=== PATIENT | female | born 1995 ===

== ENCOUNTER 2017-08-27 14:55 | Emergency (ER) | payer SELFPAY ==
--- NOTE | 2017-08-27 16:41 | ED PDOC ---
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 states for the past 2 days she's had suprapubic pain. States she is currently . LMP: 07/11/2017. Pt. states she is concerned about having an ectopic . States in 05/2017 she was dx with an ectopic which did not require surgery. Denies vaginal bleeding, weakness, dysuria, hematuria, N/V/D, fever, back pain. [id number] Past Medical History Vital Signs: Last Vital Signs Temp 98.8 F 08/27/17 15:01 Pulse 89 08/27/17 15:01 Resp 16 08/27/17 15:01 BP 118/72 08/27/17 15:01 Pulse Ox 100 08/27/17 15:01 - Family History Family History: States: No Known Family Hx - Allergies Allergies/Adverse Reactions: Allergies Allergy/AdvReac Type Severity Reaction Status Date / Time No Known Allergies Allergy Verified 08/27/17 15:01 Review of Systems ROS Statement: Except As Marked, All Systems Reviewed And Found Negative Genitourinary Female: Positive for: Pelvic Pain Physical Exam - Physical Exam Appears: Positive for: Well, Non-toxic, No Acute Distress Skin: Positive for: Normal Color, Warm. Negative for: Rash Eye Exam: Positive for: Normal appearance Gastrointestinal/Abdominal: Positive for: Normal Exam, Soft. Negative for: Tenderness Back: Positive for: Normal Inspection. Negative for: L CVA Tenderness, R CVA Tenderness Neurologic/Psych: Positive for: Alert, Oriented. Negative for: Aphasia, Facial Droop - Laboratory Results Result Diagrams: 08/27/17 17:00 08/27/17 17:00 Urine POC: Positive - ECG O2 Sat by Pulse Oximetry: 100 - Progress ED Course And Treament: Labs, TVUS ordered. 1817 Case, labs, and US results d/w Dr. De Jesus who recommends repeat BHCG and US in 48 hours. TVUS: Possible very early intrauterine gestational sac. No pole or cardiac activity detected. Out of range for age determination. Cannot rule out ectopic . Adjacent irregular complex fluid collection. Possible subchorionic hemorrhage. 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 informed of results and advised to return to ED in 48 hours for repeat BHCG and US but is to return to ED immediately if pain worsens or bleeding develops. Pt. verbalized understanding of necessary f/u and plan. Disposition - Clinical Impression Clinical Impression: Pelvic pain during , Threatened miscarriage - Patient ED Disposition Is Patient to be Admitted: No - Disposition Referrals: [facility] [Outside] Disposition: Routine/Home Disposition Time: 19:18 Condition: STABLE Additional Instructions: RETURN TO ED IN 48 HOURS FOR REPEAT BHCG AND US Instructions: Threatened Miscarriage Forms: [employer] (Bel[place]ian) Print Language: TURKMEN
[2017-08-27 17:30] LABS: BASO % 0.4 % (0.0-2.0); EOS # 0.1 K/uL (0.0-0.7); EOS % 1.1 % (0.0-4.0); HEMOGLOBIN 12.5 g/dL (12.0-16.0); LYMPH # 2.4 K/uL (1.0-4.3); MEAN CELL VOLUME 86.2 fl (81.0-99.0); MEAN CORPUSCULAR HEMOGLOBIN 29.6 pg (27.0-31.0); MEAN CORPUSCULAR HGB CONC 34.3 g/dL (33.0-37.0); MEAN PLATELET VOLUME 9.8 fl (7.2-11.7); MONO # 0.7 K/uL (0.0-0.8); MONO % 8.5 % (0.0-10.0); NEUT # 4.8 K/uL (1.8-7.0); RBC 4.22 Mil/uL (3.80-5.20); RED CELL DISTRIBUTION WIDTH 13.7 % (11.5-14.5)
[2017-08-27 17:32] LABS: SQUAMOUS EPITHIAL 1 /hpf (0-5); URINE BILIRUBIN NEGATIVE (NEGATIVE); URINE BLOOD NEGATIVE (NEGATIVE); URINE CLARITY CLEAR (Clear); URINE COLOR STRAW (YELLOW); URINE GLUCOSE (UA) NEG (Normal); URINE LEUKOCYTE ESTERASE NEG Leu/uL (Negative); URINE PROTEIN NEGATIVE (NEGATIVE); URINE UROBILINOGEN 0.2-1.0 mg/dL (0.2-1.0)
[2017-08-27 17:42] LABS: BLOOD UREA NITROGEN 10 mg/dl (7-17); CALCIUM 9.1 mg/dL (8.4-10.2); GFR AFRICAN-AMERICAN > 60; GFR NON-AFRICAN AMERICAN > 60
--- NOTE | 2017-08-27 18:00 | US ---
PROCEDURE: OB Pelvic Ultrasound HISTORY: pelvic pain COMPARISON: None available. FINDINGS: UTERUS: Small fluid collection, possible early gestational sac. This measures 5 mm, out of range for determination of age. No pole visualized. No detectable cardiac activity. There is an irregularly-shaped complex fluid collection adjacent to this, measuring 0.4 x 1.5 x 2.6 cm. Possible subchorionic hemorrhage. Uterus measures 7.9 x 6.7 x 5.1 cm. No mass CERVIX: Long and closed. No cervical abnormality seen. RIGHT OVARY: Measures 3.5 x 2.2 x 2.4 cm. No mass. Normal flow. Physiologic cyst, 1.1 x 1.3 x 1.5 cm. LEFT OVARY: Measures 3.0 x 1.3 x 1.7 cm. No mass. Normal flow. FREE FLUID: None. OTHER FINDINGS: None. IMPRESSION: Possible very early intrauterine gestational sac. No pole or cardiac activity detected. Out of range for age determination. Cannot rule out ectopic . Adjacent irregular complex fluid collection. Possible subchorionic hemorrhage.
[2017-08-27 19:44] VITALS: BP 130/78; PULSE 84; RESP 18; TEMP 98.4; O2SAT 99
== END 2017-08-27 19:43 | disposition home or self-care (01) ==
LOC: H.ER 14:55
DX: O20.0 Threatened abortion (principal)

== ENCOUNTER 2017-08-29 13:42 | Emergency (ER) | payer SELFPAY ==
[2017-08-29 13:51] VITALS: BP 115/72; PULSE 94; RESP 18; TEMP 98.6
[2017-08-29 14:06] VITALS: O2SAT 99
--- NOTE | 2017-08-29 14:13 | ED PDOC ---
HPI: General Adult Time Seen by Provider: 08/29/17 14:00 Chief Complaint (Nursing): Abnormal Labs History Per: Patient History/Exam Limitations: no limitations Additional History Per: Prior Records Additional Complaint(s): 22-year-old female (G3-P1) presents to ED for repeat beta-hCG test and ultrasound. Pt is approximately 5 week gestation. Pt was seen here 2 days ago for abdominal pain in . Pt evaluated to r/o ectopic. Currently no pain or vaginal bleeding. PMD: Provider TBD Past Medical History Reviewed: Historical Data, Nursing Documentation, Vital Signs Vital Signs: Last Vital Signs Temp 98.6 F 08/29/17 13:47 Pulse 94 H 08/29/17 13:47 Resp 18 08/29/17 13:47 BP 115/72 08/29/17 13:47 Pulse Ox 99 08/29/17 17:20 - Medical History PMH: No Chronic Diseases - Surgical History Surgical History: No Surg Hx - Family History Family History: States: Unknown Family Hx - Allergies Allergies/Adverse Reactions: Allergies Allergy/AdvReac Type Severity Reaction Status Date / Time No Known Allergies Allergy Verified 08/27/17 15:01 Review of Systems ROS Statement: Except As Marked, All Systems Reviewed And Found Negative Gastrointestinal: Negative for: Abdominal Pain Genitourinary Female: Negative for: Vaginal Bleeding Physical Exam - Reviewed Nursing Documentation Reviewed: Yes Vital Signs Reviewed: Yes - Physical Exam Gastrointestinal/Abdominal: Negative for: Tenderness Pelvic Exam: Positive for: Other (Pelvic Exam deferred) - Laboratory Results Result Diagrams: 08/29/17 14:23 08/29/17 14:23 - ECG O2 Sat by Pulse Oximetry: 99 (RA) Pulse Ox Interpretation: Normal - Progress ED Course And Treament: PELVIC US: Presumed early intrauterine gestation, well-formed gestational sac. Tiny gestational pole. No documented yolk sac. Medical Decision Making Medical Decision Making: Time: 14:03 Plan: - Beta-hCG, Quantitative - cmp - cbc (with differentials) - ob tranvaginal ultrasound Beta-hCG, Quantitative Reveals 6871.80 mIU/mL Time: 16:41 ob transvaginal ultrasound FINDINGS: UTERUS: Measures 4.6 x 5.5 x 0.8 cm. Normal in size and appearance. No fibroid or other mass lesion seen. ENDOMETRIUM: Gestational sac measurement 0.83 cm. Out of range for calculation of reliable gestational age. [place]-rump length 0.23 cm corresponds to gestational age 5 weeks 5 days. Corresponding BLAKE 04/26/2018 CERVIX: Closed cervix 4.9 cm RIGHT OVARY: Measures 2.3 x 2.8 x 3.9 cm. No solid mass. Normal flow. Simple cyst 1.7 x 1.8 cm LEFT OVARY: Measures 1.8 x 2.4 x 2.6 wong cm. No solid mass. Normal flow. FREE FLUID: No significant free fluid noted. OTHER FINDINGS: None. IMPRESSION: Presumed early intrauterine gestation, well-formed gestational sac. Tiny gestational pole. No documented yolk sac. Scribe Attestation: Documented by Mark Dolan, acting as a scribe for Henry Holly PA-C. Provider Scribe Attestation: All medical record entries made by the Scribe were at my direction and personally dictated by me. I have reviewed the chart and agree that the record accurately reflects my personal performance of the history, physical exam, medical decision making, and the department course for this patient. I have also personally directed, reviewed, and agree with the discharge instructions and disposition. Disposition - Clinical Impression Clinical Impression: Threatened miscarriage - Patient ED Disposition Is Patient to be Admitted: No - Disposition [facility] Disposition: Routine/Home Disposition Time: 17:24 Condition: FAIR Instructions: Threatened Miscarriage (DC) Print Language: SINHALA
[2017-08-29 14:30] LABS: BASO # 0.1 K/uL (0.0-0.2); BASO % 0.8 % (0.0-2.0); EOS # 0.1 K/uL (0.0-0.7); EOS % 1.6 % (0.0-4.0); HEMOGLOBIN 12.8 g/dL (12.0-16.0); LYMPH % 24.5 % (20.0-40.0); MEAN CELL VOLUME 86.4 fl (81.0-99.0); MEAN CORPUSCULAR HEMOGLOBIN 29.4 pg (27.0-31.0); MEAN PLATELET VOLUME 9.5 fl (7.2-11.7); MONO # 0.7 K/uL (0.0-0.8); NEUT # 5.2 K/uL (1.8-7.0); NEUT % 64.1 % (50.0-75.0); RBC 4.34 Mil/uL (3.80-5.20); RED CELL DISTRIBUTION WIDTH 13.3 % (11.5-14.5); WHITE BLOOD COUNT 8.1 K/uL (4.8-10.8)
[2017-08-29 14:44] LABS: ALB/GLOB RATIO 1.1 (1.0-2.1); ALBUMIN 4.1 g/dL (3.5-5.0); ALT/SGPT 50 U/L (9-52); AST/SGOT 32 U/L (14-36); BLOOD UREA NITROGEN 8 mg/dl (7-17); GFR AFRICAN-AMERICAN > 60; GFR NON-AFRICAN AMERICAN > 60
--- NOTE | 2017-08-29 16:43 | US ---
HISTORY: Abdominal pain and early . LMP 07/11/2017. Corresponding BLAKE 04/17/2018. COMPARISON: 08/27/2017 TECHNIQUE: Standard protocol for this study/examination. FINDINGS: UTERUS: Measures 4.6 x 5.5 x 0.8 cm. Normal in size and appearance. No fibroid or other mass lesion seen. ENDOMETRIUM: Gestational sac measurement 0.83 cm. Out of range for calculation of reliable gestational age. [place]-rump length 0.23 cm corresponds to gestational age 5 weeks 5 days. Corresponding BLAKE 04/26/2018 CERVIX: Closed cervix 4.9 cm RIGHT OVARY: Measures 2.3 x 2.8 x 3.9 cm. No solid mass. Normal flow. Simple cyst 1.7 x 1.8 cm LEFT OVARY: Measures 1.8 x 2.4 x 2.6 wong cm. No solid mass. Normal flow. FREE FLUID: No significant free fluid noted. OTHER FINDINGS: None. IMPRESSION: Presumed early intrauterine gestation, well-formed gestational sac. Tiny gestational pole. No documented yolk sac.
== END 2017-08-29 17:30 | disposition home or self-care (01) ==
LOC: H.ER 13:42
DX: O20.0 Threatened abortion (principal); Z3A.01 Less than 8 weeks gestation of pregnancy

== ENCOUNTER 2017-10-15 09:08 | Emergency (ER) | payer SELFPAY ==
[2017-10-15 09:18] VITALS: BMI 28.3
--- NOTE | 2017-10-15 10:15 | ED PDOC ---
HPI: Female Pain Time Seen by Provider: 10/15/17 09:25 Chief Complaint (Nursing): Female Genitourinary Chief Complaint (Provider): vaginal bleeding History Per: Patient History/Exam Limitations: no limitations Onset/Duration Of Symptoms: Hrs Current Symptoms Are (Timing): Still Present Quality Of Discomfort: "Pain" Associated Symptoms: Back Pain, Other (suprapubic pain ). denies: Fever, Chest Pain, Urinary Symptoms Additional Complaint(s): 22 year old female presents to the ED complaining of vaginal bleeding onset this morning. Also reports of suprapubic pain and back pain yesterday. She has small amounts of vaginal blood but denies blood clots. Patient is 12 weeks and had an ultrasound done earlier during . She is G3, P1, A1. Denies syncope, dysuria, fever, rectal bleeding or chest pain. PMD: [facility] ([place]) Past Medical History Reviewed: Historical Data, Nursing Documentation, Vital Signs Vital Signs: Last Vital Signs Temp 98.9 F 10/15/17 09:19 Pulse 75 10/15/17 09:19 Resp 18 10/15/17 09:19 BP 96/60 L 10/15/17 09:19 Pulse Ox 98 10/15/17 09:19 - Medical History PMH: No Chronic Diseases - Surgical History Surgical History: No Surg Hx - Family History Family History: States: Unknown Family Hx - Social History Current smoker - smoking cessation education provided: No Alcohol: None Drugs: Denies - Home Medications Home Medications: Ambulatory Orders Medication Instructions Recorded Misoprostol 800 mcg PO BID #8 tablet 10/15/17 - Allergies Allergies/Adverse Reactions: Allergies Allergy/AdvReac Type Severity Reaction Status Date / Time No Known Allergies Allergy Verified 08/27/17 15:01 Review of Systems ROS Statement: Except As Marked, All Systems Reviewed And Found Negative Constitutional: Negative for: Fever Cardiovascular: Negative for: Chest Pain Gastrointestinal: Positive for: Abdominal Pain (suprapubic pain ). Negative for : Nausea, Vomiting, Diarrhea Genitourinary Female: Positive for: Vaginal Bleeding. Negative for: Dysuria, Frequency Musculoskeletal: Positive for: Back Pain Neurological: Negative for: Other (syncope) Physical Exam - Reviewed Nursing Documentation Reviewed: Yes Vital Signs Reviewed: Yes - Physical Exam Appears: Positive for: Non-toxic, No Acute Distress Head Exam: Positive for: ATRAUMATIC, NORMAL INSPECTION, NORMOCEPHALIC Skin: Positive for: Normal Color, Warm, Dry Eye Exam: Positive for: Normal appearance, EOMI, PERRL ENT: Positive for: Normal ENT Inspection Neck: Positive for: Normal, Painless ROM, Supple. Negative for: Decreased ROM Cardiovascular/Chest: Positive for: Regular Rate, Rhythm. Negative for: Murmur Respiratory: Positive for: Normal Breath Sounds. Negative for: Decreased Breath Sounds, Wheezing, Respiratory Distress Gastrointestinal/Abdominal: Positive for: Normal Exam, Bowel Sounds, Soft. Negative for: Tenderness, Guarding, Rebound Back: Positive for: Normal Inspection. Negative for: L CVA Tenderness, R CVA Tenderness Extremity: Positive for: Normal ROM. Negative for: Tenderness, Pedal Edema, Deformity Neurologic/Psych: Positive for: Alert, Oriented (x3) - ECG O2 Sat by Pulse Oximetry: 98 (RA) Pulse Ox Interpretation: Normal Medical Decision Making Medical Decision Making: Time: 951 Initial Impression: vaginal bleeding 1st trimester Differential Diagnosis includes but is not limited to: frightened miscarriage Initial Plan: --Type and Screen -- Serum --OB , Limited [US] --Reevaluation Patient already had US and her IUP at 5 weeks. Time: 1515 PROCEDURE: First trimester ultrasound HISTORY: vaginal bleeding, suprapubic pain COMPARISON: 08/29/2017 TECHNIQUE: Transvaginal only. Real -time technique with 2D, duplex and color Doppler FINDINGS: LMP: 07/11/2017. Prior examinations from the current : 08/29/2017 TECHNIQUE: Real-time 2D imaging, duplex and color Doppler. FINDINGS: Cardiac activity: Absent. Measurements: [place] rump length: 2.21 cm Gestational age based on CRL 8 weeks 6 days Gestational age 9 weeks 3 days based on gestational sac measurement 4.05 cm Gestational age derived from LMP: 14 weeks 5 days BLAKE based on LMP: 05/19/2018. BLAKE based on biometry: 05/19/2018. Gestational concordance not documented Yolk sac not identified Uterus: Unremarkable. Cervix: No Cervical abnormalities: Negative examination for cervical dilatation or effacement. Closed cervix. Subchorionic hemorrhage: None UTERUS: 5.9 x 7.9 x 12 cm. ADNEXA: Right: 1.7 x 2.5 x 3.7 cm. Normal Doppler arterial waveform documented. Left: Not visible Fluid in the cul-de-sac: None IMPRESSION: Ultrasound findings of intrauterine demise. Gestational pole and gestational sac measurements are discordant with at derived from the LMP. 1530 Discussed the case and findings with Dr De Jesus who recommends misoprostol treatment outpatient and follow up with primary ObGYn. Scribe Attestation: Documented by Mariano Monterroso, acting as a scribe for Ml Lester MD Provider Scribe Attestation: All medical record entries made by the Scribe were at my direction and personally dictated by me. I have reviewed the chart and agree that the record accurately reflects my personal performance of the history, physical exam, medical decision making, and the department course for this patient. I have also personally directed, reviewed, and agree with the discharge instructions and disposition. Disposition - Clinical Impression Clinical Impression: demise - Patient ED Disposition Is Patient to be Admitted: No Doctor Will See Patient In The: Office Counseled Patient/Family Regarding: Studies Performed, Diagnosis, Need For Followup - Disposition Referrals: [facility] [Outside] Disposition: Routine/Home Disposition Time: 15:36 Condition: GOOD Additional Instructions: Take your medications as instructed. Follow up with your PCP in 2-3 days. ELROY CRONIN, thank you for letting us take care of you today. Your provider was Ml Lester MD and you were treated for 12 WEEKS,VAGINAL BLEEDING,BACK PAIN. The emergency medical care you received today was directed at your acute symptoms. If you were prescribed any medication, please fill it and take as directed. It may take several days for your symptoms to resolve. Return to the Emergency Department if your symptoms worsen, do not improve, or if you have any other problems. Please contact your doctor or call one of the physicians/clinics you have been referred to that are listed on the Patient Visit Information form that is included in your discharge packet. Bring any paperwork you were given at discharge with you along with any medications you are taking to your follow up visit. Our treatment cannot replace ongoing medical care by a primary care provider outside of the emergency department. Thank you for allowing the [facility] team to be part of your care today. If you had an X-Ray or CT scan: A Radiologist will review the ED reading if any change in treatment is needed we will contact you. If you had a blood, urine, or wound culture: It will take several days for the results, if any change in treatment is needed we will contact you. If you had an STI test: It will take 48 hours for the results. Please call after 1 week if you have not heard back. Prescriptions: Misoprostol 800 mcg PO BID #8 tablet Instructions: Miscarriage, Misoprostol Forms: [employer] (Vietnamese) Print Language: TUVALUAN
--- NOTE | 2017-10-15 15:18 | US ---
Date of service: 10/15/2017 PROCEDURE: First trimester ultrasound HISTORY: vaginal bleeding, suprapubic pain COMPARISON: 08/29/2017 TECHNIQUE: Transvaginal only. Real -time technique with 2D, duplex and color Doppler FINDINGS: LMP: 07/11/2017. Prior examinations from the current : 08/29/2017 TECHNIQUE: Real-time 2D imaging, duplex and color Doppler. FINDINGS: Cardiac activity: Absent. Measurements: [place] rump length: 2.21 cm Gestational age based on CRL 8 weeks 6 days Gestational age 9 weeks 3 days based on gestational sac measurement 4.05 cm Gestational age derived from LMP: 14 weeks 5 days BLAKE based on LMP: 05/19/2018. BLAKE based on biometry: 05/19/2018. Gestational concordance not documented Yolk sac not identified Uterus: Unremarkable. Cervix: No Cervical abnormalities: Negative examination for cervical dilatation or effacement. Closed cervix. Subchorionic hemorrhage: None UTERUS: 5.9 x 7.9 x 12 cm. ADNEXA: Right: 1.7 x 2.5 x 3.7 cm. Normal Doppler arterial waveform documented. Left: Not visible Fluid in the cul-de-sac: None IMPRESSION: Ultrasound findings of intrauterine demise. Gestational pole and gestational sac measurements are discordant with at derived from the LMP.
[2017-10-15 15:58] VITALS: BP 101/66; PULSE 78; RESP 16; TEMP 98.2; O2SAT 100
== END 2017-10-15 15:59 | disposition home or self-care (01) ==
LOC: H.ER 09:08
DX: O36.4XX1 Maternal care for intrauterine death, fetus 1 (principal); Z3A.01 Less than 8 weeks gestation of pregnancy

== ENCOUNTER 2017-10-20 08:35 | Emergency (ER) | payer SELFPAY ==
[2017-10-20 08:48] VITALS: BMI 28.0
--- NOTE | 2017-10-20 09:30 | ED PDOC ---
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 ([email or web address] #[id number]) Abnormal Vaginal Bleeding: No Past Medical History Vital Signs: Last Vital Signs Temp 98.2 F 10/20/17 08:46 Pulse 65 10/20/17 08:46 Resp BP 92/52 L 10/20/17 08:46 Pulse Ox 99 10/20/17 08:46 - Family History Family History: States: Unknown Family Hx - Home Medications Home Medications: Ambulatory Orders Medication Instructions Recorded Misoprostol 800 mcg PO BID #8 tablet 10/15/17 Ibuprofen [Motrin Tab] 600 mg PO Q6 PRN #15 tab 10/20/17 miSOPROStol [Cytotec] 800 mcg VAG Q3 #8 tab 10/20/17 traMADol [Ultram] 50 mg PO TID PRN #12 tab 10/20/17 - Allergies Allergies/Adverse Reactions: Allergies Allergy/AdvReac Type Severity Reaction Status Date / Time No Known Allergies Allergy Verified 10/20/17 08:55 - Laboratory Results Result Diagrams: 10/20/17 09:40 10/20/17 09:40 - ECG O2 Sat by Pulse Oximetry: 99 Medical Decision Making Medical Decision Making: clinical phamarcist naye review medication arley arora apparently dispensed wrong and was taking med BID which likely not enough to produce desired effect labs today reviewed, HCG trending down, US confirms demise. Dose intravaginal cytotec thus given today, monitored approx 1hr after with some back pain and cramping initiating. Explained to expect more, but she appears comfortable and wishes to go home. explained results via [email or web address] [id number], additional doses cytotec tonight, pain medicine prn, indications for return to ER discussed Disposition - Clinical Impression Clinical Impression: Incomplete - Disposition [facility] [[facility]] Condition: STABLE Additional Instructions: Take medication as directed. Use pain medicine as needed. Return to ER for any worse or new symptoms, severe pain, bleeding >3pads/ hour or any concern. Prescriptions: Ibuprofen [Motrin Tab] 600 mg PO Q6 PRN #15 tab PRN Reason: Pain, Moderate (4-7) miSOPROStol [Cytotec] 800 mcg VAG Q3 #8 tab traMADol [Ultram] 50 mg PO TID PRN #12 tab PRN Reason: Pain, Moderate (4-7) Instructions: Dealing With Miscarriage, Miscarriage (DC) Forms: [employer] (Italian) Print Language: KOREAN
[2017-10-20 09:49] LABS: BASO % 0.8 % (0.0-2.0); EOS # 0.1 K/uL (0.0-0.7); EOS % 1.7 % (0.0-4.0); HEMOGLOBIN 12.5 g/dL (12.0-16.0); LYMPH # 1.8 K/uL (1.0-4.3); LYMPH % 33.3 % (20.0-40.0); MEAN CELL VOLUME 85.6 fl (81.0-99.0); MEAN CORPUSCULAR HEMOGLOBIN 29.6 pg (27.0-31.0); MEAN CORPUSCULAR HGB CONC 34.6 g/dL (33.0-37.0); MEAN PLATELET VOLUME 9.2 fl (7.2-11.7); MONO # 0.5 K/uL (0.0-0.8); MONO % 9.4 % (0.0-10.0); NEUT % 54.8 % (50.0-75.0); NRBC % 0.1 % (0.0-0.0); RBC 4.23 Mil/uL (3.80-5.20); RED CELL DISTRIBUTION WIDTH 13.2 % (11.5-14.5); WHITE BLOOD COUNT 5.5 K/uL (4.8-10.8)
[2017-10-20 10:05] LABS: ALB/GLOB RATIO 1.2 (1.0-2.1); ALBUMIN 4.1 g/dL (3.5-5.0); ALT/SGPT 35 U/L (9-52); AST/SGOT 45 U/L (14-36); BLOOD UREA NITROGEN 6 mg/dl (7-17); CALCIUM 8.8 mg/dL (8.4-10.2); GFR AFRICAN-AMERICAN > 60; GFR NON-AFRICAN AMERICAN > 60
--- NOTE | 2017-10-20 12:42 | US ---
Date of service: 10/20/2017 PROCEDURE: Limited ultrasound HISTORY: demise s/p misoprostol but no bleeding COMPARISON: 10/15/2017. TECHNIQUE: Standard protocol for this study/examination. FINDINGS: Re- demonstration of absent cardiac activity. Yolk sac identified. Right ovary 1.9 x 3.1 cm. Normal Doppler arterial waveform. Left ovary: 1.3 x 1 x 2.3 cm. Normal Doppler arterial waveform identified. IMPRESSION: Intrauterine demise. This represents seconds 1st trimester ultrasound without demonstrable cardiac activity.
[2017-10-20 16:26] VITALS: BP 129/70; PULSE 66; RESP 18; TEMP 98.5
[2017-10-20 16:49] VITALS: O2SAT 99
== END 2017-10-20 16:54 | disposition home or self-care (01) ==
LOC: H.ER 08:35
DX: O03.4 Incomplete spontaneous abortion without complication (principal)

== ENCOUNTER 2017-10-29 17:16 | Emergency (ER) | payer SELFPAY ==
[2017-10-29 17:16] VITALS: BMI 28.0
--- NOTE | 2017-10-29 18:06 | ED PDOC ---
HPI: Female Pain Time Seen by Provider: 10/29/17 17:58 Chief Complaint (Nursing): Female Genitourinary History Per: Patient Onset/Duration Of Symptoms: Unknown Current Symptoms Are (Timing): Still Present Severity: Mild Quality Of Discomfort: Cramping Additional Complaint(s): Vaginal spotting, referred bt [facility] for vaginal spotting assoc with retained products of conception Abnormal Vaginal Bleeding: Yes Past Medical History Vital Signs: Last Vital Signs Temp 98.1 F 10/29/17 17:29 Pulse 78 10/29/17 17:29 Resp 16 10/29/17 17:29 BP 102/65 10/29/17 17:29 Pulse Ox 100 10/29/17 17:29 - Medical History PMH: No Chronic Diseases - Family History Family History: States: Unknown Family Hx - Home Medications Home Medications: Ambulatory Orders Medication Instructions Recorded Misoprostol 800 mcg PO BID #8 tablet 10/15/17 Ibuprofen [Motrin Tab] 600 mg PO Q6 PRN #15 tab 10/20/17 miSOPROStol [Cytotec] 800 mcg VAG Q3 #8 tab 10/20/17 traMADol [Ultram] 50 mg PO TID PRN #12 tab 10/20/17 - Allergies Allergies/Adverse Reactions: Allergies Allergy/AdvReac Type Severity Reaction Status Date / Time No Known Allergies Allergy Verified 10/29/17 17:28 Review of Systems Gastrointestinal: Positive for: Abdominal Pain Genitourinary Female: Positive for: Vaginal Bleeding Physical Exam - Physical Exam Appears: Positive for: Non-toxic, No Acute Distress Skin: Positive for: Normal Color, Warm, DRY Gastrointestinal/Abdominal: Positive for: Bowel Sounds, Soft. Negative for: Tenderness Pelvic Exam: Positive for: External Exam Normal, Blood, Other (Cervix closed). Negative for: Tender Adnexa - Laboratory Results Result Diagrams: 10/29/17 18:59 - ECG O2 Sat by Pulse Oximetry: 100 Disposition - Clinical Impression Clinical Impression: Incomplete - Patient ED Disposition Is Patient to be Admitted: Transfer of Care - Disposition [facility] [[facility]] Disposition: Transfer of Care Disposition Time: 17:00 Condition: STABLE Instructions: Miscarriage Forms: [employer] (Mauritanian) Print Language: BULGARIAN Patient Signed Over To: José Miguel Lombardi
--- NOTE | 2017-10-29 18:59 | US ---
Date of service: 10/29/2017 HISTORY: retained products of conception COMPARISON: Comparison is made to the previous study dated 10/20/2017 TECHNIQUE: Endovaginal ultrasound examination of the pelvis was obtained. FINDINGS: UTERUS: Measures 7.8 x 4.9 x 5.2 cm. Normal in size and appearance. No fibroid or other mass lesion seen. ENDOMETRIUM: There is a complex heterogeneous fluid collection in the endometrial cavity measures 1.1 x 0.9 x 0.2 centimeter. No evidence of discrete gestational sac or pole. Findings may represent retained product of conception. CERVIX: No cervical abnormality identified. The cervix measures 4.3 centimeter. RIGHT OVARY: Measures 3.6 x 2.2 x 2.5 cm. No solid mass. Normal flow. Prominent follicle measures 2 centimeter. LEFT OVARY: Measures 2.5 x 1.5 x 1.3 cm. No solid mass. Normal flow. FREE FLUID: No significant free fluid noted. OTHER FINDINGS: None. IMPRESSION: Previously noted pole in the previous exam is not seen in the current study. Heterogeneous echogenicity and complex fluid in the endometrial cavity noted may represent in progress versus retained product of conception. No evidence of acute pathology in the ovaries.
[2017-10-29 19:09] LABS: BASO % 0.5 % (0.0-2.0); EOS # 0.1 K/uL (0.0-0.7); EOS % 1.3 % (0.0-4.0); HEMOGLOBIN 10.2 g/dL (12.0-16.0); LYMPH # 2.1 K/uL (1.0-4.3); LYMPH % 25.4 % (20.0-40.0); MEAN CELL VOLUME 86.9 fl (81.0-99.0); MEAN CORPUSCULAR HGB CONC 34.5 g/dL (33.0-37.0); MEAN PLATELET VOLUME 9.6 fl (7.2-11.7); MONO # 0.5 K/uL (0.0-0.8); MONO % 6.6 % (0.0-10.0); NEUT # 5.4 K/uL (1.8-7.0); NEUT % 66.2 % (50.0-75.0); RBC 3.41 Mil/uL (3.80-5.20); RED CELL DISTRIBUTION WIDTH 13.5 % (11.5-14.5); WHITE BLOOD COUNT 8.2 K/uL (4.8-10.8)
--- NOTE | 2017-10-29 19:16 | ED PDOC ---
- Laboratory Results Result Diagrams: 10/29/17 18:59 - ECG O2 Sat by Pulse Oximetry: 100 Medical Decision Making Medical Decision Making: Time: 19:00 Patient endorsed to provider by Dr. Stephenson pending blood work. Time: 22:00 DR. Crowley states patient can be discharged if bleeding is minimal and patient is stable. Patient confirms that bleeding is minimal today. Vitals stable Time: 23:00 Spoke with OB Engineering Technology Instructor who will confirm appointment with patient in AM. Patient has appointment scheduled for Friday. Explained return precautions. Used interepreter withpatient using [employer] #[id number] Patient well appearing with stable vitals upon discharge. Disposition - Clinical Impression Clinical Impression: Incomplete - POA Present On Arrival: None - Disposition [facility] Disposition: Routine/Home Disposition Time: 23:06 Condition: STABLE Instructions: Miscarriage Forms: [employer] (Mexican) Print Language: POLISH
[2017-10-29 23:07] VITALS: BP 117/64; PULSE 85; RESP 16; TEMP 98.6
[2017-10-31 07:05] VITALS: O2SAT 100
== END 2017-10-29 23:07 | disposition home or self-care (01) ==
LOC: H.ER 17:16
DX: O03.4 Incomplete spontaneous abortion without complication (principal)

== ENCOUNTER 2017-10-31 10:12 | Emergency (ER) | payer SELFPAY ==
[2017-10-31 10:12] VITALS: BMI 28.0
--- NOTE | 2017-10-31 11:23 | ED PDOC ---
HPI: Female Pain Time Seen by Provider: 10/31/17 11:00 Chief Complaint (Provider): fever, vaginal bleeding, mild pelvic pain History Per: Patient History/Exam Limitations: no limitations Onset/Duration Of Symptoms: Days (x1) Current Symptoms Are (Timing): Still Present Associated Symptoms: Fever, Nausea. denies: Vomiting, Diarrhea, Back Pain, Chest Pain, Urinary Symptoms Additional Complaint(s): Maria Elena Russo is a 22 year old female, with no significant past medical history, who was sent to the emergency department by Dr. Posada from [facility] for vaginal bleeding and mild pelvic pain associated with fever and mild frontal headache onset since yesterday afternoon. Patient was seen last week on 10/20 after she had a miscarriage and was sent home with Misoprostol and sent to follow up with clinic. She was sent to ED from clinic again on 10/29 for vaginal bleeding and still had product of conception inside and was told to come back if developed fever. Patient states she has not been compliant with Misoprostol and reports headache relief with Tylenol. She also reports nausea but denies any neck pain, cough, congestion, runny nose, shortness of breath, chest pain, dysuria, flank tenderness, vomit, diarrhea, back pain or other medical complaints. Headache is not the worst in her life. Gradual onset. No numbness, tingles. PMD: None provided OB: Dr. Posada Past Medical History Reviewed: Historical Data, Nursing Documentation, Vital Signs Vital Signs: Last Vital Signs Temp 99.6 F 10/31/17 10:24 Pulse 114 H 10/31/17 10:24 Resp 17 10/31/17 10:24 BP 99/62 L 10/31/17 10:24 Pulse Ox 98 10/31/17 10:24 - Medical History PMH: No Chronic Diseases Denies: Chronic Kidney Disease - Surgical History Surgical History: No Surg Hx - Family History Family History: States: Unknown Family Hx - Home Medications Home Medications: Ambulatory Orders Medication Instructions Recorded Misoprostol 800 mcg PO BID #8 tablet 10/15/17 Ibuprofen [Motrin Tab] 600 mg PO Q6 PRN #15 tab 10/20/17 miSOPROStol [Cytotec] 800 mcg VAG Q3 #8 tab 10/20/17 traMADol [Ultram] 50 mg PO TID PRN #12 tab 10/20/17 miSOPROStol [Cytotec] 200 mcg VAG ONCE #8 tab 10/31/17 - Allergies Allergies/Adverse Reactions: Allergies Allergy/AdvReac Type Severity Reaction Status Date / Time No Known Allergies Allergy Verified 10/29/17 17:28 Review of Systems ROS Statement: Except As Marked, All Systems Reviewed And Found Negative Constitutional: Positive for: Fever ENT: Negative for: Nose Congestion Cardiovascular: Negative for: Chest Pain Respiratory: Negative for: Cough, Shortness of Breath Gastrointestinal: Positive for: Nausea. Negative for: Vomiting, Diarrhea, Other (flank pain) Genitourinary Female: Positive for: Vaginal Bleeding, Pelvic Pain (mild). Negative for: Dysuria Physical Exam - Reviewed Nursing Documentation Reviewed: Yes Vital Signs Reviewed: Yes - Physical Exam Appears: Positive for: No Acute Distress Head Exam: Positive for: ATRAUMATIC, NORMAL INSPECTION, NORMOCEPHALIC Skin: Positive for: Normal Color, Warm, Dry Eye Exam: Positive for: Normal appearance, EOMI, PERRL ENT: Positive for: Normal ENT Inspection Neck: Positive for: Normal, Painless ROM (no tenderness), Supple Cardiovascular/Chest: Positive for: Regular Rate, Rhythm. Negative for: Edema, Murmur Respiratory: Positive for: Normal Breath Sounds. Negative for: Respiratory Distress Gastrointestinal/Abdominal: Positive for: Tenderness (mild tenderness across lower abdomen) Back: Positive for: Normal Inspection. Negative for: L CVA Tenderness, R CVA Tenderness Extremity: Positive for: Normal ROM (upper and lower extremities). Negative for : Tenderness, Deformity, Swelling Neurologic/Psych: Positive for: Alert, plant associate II-XII (intact), Oriented, Gait ( steady). Negative for: Motor/Sensory Deficits - Laboratory Results Result Diagrams: 10/31/17 11:25 10/31/17 11:25 Interpretation Of Abn Labs: urine wbc - ECG O2 Sat by Pulse Oximetry: 98 (RA) Pulse Ox Interpretation: Normal - CT Scan/US US Other Rad Studies (CT/US): Read By Radiologist Other Rad Interpretation: endometrium with clot - Progress ED Course And Treament: 1351: Spoke with Dr. Posada who knows pt. well and sent to the ER for workup. Made aware of all findings. Wants pt. to do misoprostol again. Wants pt. to get rx for 800mcg transvaginal. If no bleeding in 24 hrs, pt. to repeat. [facility] 1015am, [facility] Pt. aware and understands plan. AAOx3. Medical Decision Making Medical Decision Making: Time: 11:00 Initial Impression: Pelvic pain, miscarriage Initial Plan: --EKG --Beta-HCG, Quantitative --Magnesium --Phosphorus --Urine dipstick --Urine --CBC w/ differential --PTT --PT --Tylenol 325 mg tab 650 mg PO --Sodium Chloride 1,000 ml IV 1,000 mls/hr --Blood culture --Urine culture --Influenza A B --Urinalysis --OB Transvaginal [US] --Reevaluation 13:25 Transvaginal US FINDINGS: UTERUS: Measures 9.3 x 7.8 x 5.0 cm. No uterine mass. ENDOMETRIUM: Measures 30 mm in diameter. There is heterogeneous material seen within the endometrial cavity, some echogenic and some fluid spaces. The echogenic material is avascular. There is no vascular soft tissue seen within the endometrial cavity. The endometrial lining around this heterogeneous tissue is hypervascular, consistent with recent delivery. There is no definite evidence of retained products of conception. It is most likely that the endometrial contents consistent of the appearance is grossly unchanged when compared to examination of 10/29/2017. Blood clot. CERVIX: No cervical abnormality identified. RIGHT OVARY: Measures 3.9 x 3.1 x 2.3 cm. Probable hemorrhagic cyst in the right ovary, 2.1 cm in greatest dimension. Followup advised with transvaginal pelvic ultrasound. This is seen as containing heterogeneous low-level echoes. Normal flow. LEFT OVARY: Measures 2.9 x 2.7 x 2.0 cm. No solid mass. Normal flow. FREE FLUID: No significant free fluid noted. OTHER FINDINGS: None. IMPRESSION: Heterogeneous soft tissue and fluid within the endometrial cavity, without demonstrable vascularity. Likely blood clot. No definite retained products of conception demonstrated. No significant change from 10/29/2017. Incidental likely hemorrhagic right ovarian cyst, 2.1 cm. Follow-up advised. ----- Scribe Attestation: Documented by Calderon Gillespie, acting as a scribe for Jeronimo Velazquez MD. Provider Scribe Attestation: All medical record entries made by the Scribe were at my direction and personally dictated by me. I have reviewed the chart and agree that the record accurately reflects my personal performance of the history, physical exam, medical decision making, and the department course for this patient. I have also personally directed, reviewed, and agree with the discharge instructions and disposition. Disposition - Clinical Impression Clinical Impression: Products of conception, retention, UTI (urinary tract infection) - Patient ED Disposition Is Patient to be Admitted: No Counseled Patient/Family Regarding: Studies Performed, Diagnosis, Need For Followup, Rx Given - Disposition [facility] - 11/03/17 Disposition: Routine/Home Disposition Time: 13:55 Condition: STABLE Additional Instructions: Return if not better in 3 days. Take misoprostol 800 mcg ( 4 of the 200 mcg) by inserting high in the vagina. Leave it there and lay down for 30 min. If no bleeding in 24 hrs, repeat same dosing. See Dr. Posada Nov 07, 1015am without fail. Devuelve si no mejor en [address] [place] misoprostol 800 mcg (4 de los 200 mcg) insertando alto en la vagina. D jalo all y recustese jojo 30 minutos. Si no hay sangrado en 24 horas, repita la misma dosificacin. Shmuel al Dr. Posada el er, , 10:15 a.m. sin falta. Prescriptions: miSOPROStol [Cytotec] 200 mcg VAG ONCE #8 tab Instructions: Urinary Tract Infection, Adult (DC), Misoprostol, Miscarriage (DC ) Forms: [employer] (Afghan) Print Language: MALTESE
[2017-10-31] MEDS ORDERED: Sodium Chloride 0.9% 1,000 ML IV SCH (11:30)
[2017-10-31 11:42] LABS: VENOUS BLOOD GAS BASE EXCESS -0.2 mmol/L (0.0-2.0); VENOUS BLOOD GAS PCO2 37 mmHg (40-60); VENOUS BLOOD GAS PO2 49 mm/Hg (30-55); VENOUS BLOOD PH 7.42 (7.32-7.43)
[2017-10-31 11:48] LABS: INR 1.1; PROTHROMBIN TIME 12.7 Seconds (9.8-13.1)
[2017-10-31 11:51] LABS: PARTIAL THROMBOPLASTIN TIME 29.9 Seconds (25.6-37.1)
[2017-10-31 11:53] LABS: ALB/GLOB RATIO 1.2 (1.0-2.1); ALBUMIN 4.2 g/dL (3.5-5.0); ALT/SGPT 28 U/L (9-52); AST/SGOT 30 U/L (14-36); BLOOD UREA NITROGEN 5 mg/dl (7-17); CALCIUM 8.8 mg/dL (8.4-10.2); GFR AFRICAN-AMERICAN > 60; GFR NON-AFRICAN AMERICAN > 60
[2017-10-31 12:05] LABS: BASO % 0.3 % (0.0-2.0); EOS % 0.5 % (0.0-4.0); LYMPH % 10.3 % (20.0-40.0); MEAN CELL VOLUME 86.4 fl (81.0-99.0); MEAN CORPUSCULAR HEMOGLOBIN 29.8 pg (27.0-31.0); MEAN CORPUSCULAR HGB CONC 34.5 g/dL (33.0-37.0); MEAN PLATELET VOLUME 9.6 fl (7.2-11.7); MONO # 0.8 K/uL (0.0-0.8); MONO % 7.9 % (0.0-10.0); NEUT # 8.3 K/uL (1.8-7.0); RBC 3.34 Mil/uL (3.80-5.20); RED CELL DISTRIBUTION WIDTH 13.4 % (11.5-14.5); WHITE BLOOD COUNT 10.2 K/uL (4.8-10.8)
[2017-10-31 12:21] LABS: SQUAMOUS EPITHIAL 4 /hpf (0-5); URINE BACTERIA RARE (<OCC); URINE BILIRUBIN NEGATIVE (NEGATIVE); URINE BLOOD LARGE (NEGATIVE); URINE CLARITY SLIGHTY-CLOUDY (Clear); URINE COLOR YELLOW (YELLOW); URINE GLUCOSE (UA) NEG (Normal); URINE LEUKOCYTE ESTERASE LARGE Leu/uL (Negative); URINE PROTEIN NEGATIVE (NEGATIVE); URINE UROBILINOGEN 0.2-1.0 mg/dL (0.2-1.0)
--- NOTE | 2017-10-31 13:27 | US ---
Date of service: 10/31/2017 HISTORY: products of conception and pain COMPARISON: 10/29/2017 TECHNIQUE: Transvaginal FINDINGS: UTERUS: Measures 9.3 x 7.8 x 5.0 cm. No uterine mass. ENDOMETRIUM: Measures 30 mm in diameter. There is heterogeneous material seen within the endometrial cavity, some echogenic and some fluid spaces. The echogenic material is avascular. There is no vascular soft tissue seen within the endometrial cavity. The endometrial lining around this heterogeneous tissue is hypervascular, consistent with recent delivery. There is no definite evidence of retained products of conception. It is most likely that the endometrial contents consistent of the appearance is grossly unchanged when compared to examination of 10/29/2017. Blood clot. CERVIX: No cervical abnormality identified. RIGHT OVARY: Measures 3.9 x 3.1 x 2.3 cm. Probable hemorrhagic cyst in the right ovary, 2.1 cm in greatest dimension. Followup advised with transvaginal pelvic ultrasound. This is seen as containing heterogeneous low-level echoes. Normal flow. LEFT OVARY: Measures 2.9 x 2.7 x 2.0 cm. No solid mass. Normal flow. FREE FLUID: No significant free fluid noted. OTHER FINDINGS: None. IMPRESSION: Heterogeneous soft tissue and fluid within the endometrial cavity, without demonstrable vascularity. Likely blood clot. No definite retained products of conception demonstrated. No significant change from 10/29/2017. Incidental likely hemorrhagic right ovarian cyst, 2.1 cm. Follow-up advised.
[2017-10-31 13:46] VITALS: TEMP 98.4
[2017-10-31 14:37] VITALS: BP 100/60; PULSE 76; RESP 16; O2SAT 99
--- NOTE | 2017-10-31 16:27 | CARD ---
APPROVED REPORT Date of service: 10/31/2017 <Conclusion> Normal sinus rhythm Normal ECG
== END 2017-10-31 14:45 | disposition home or self-care (01) ==
LOC: H.ER 10:12
DX: O73.1 Retained portions of placenta and membranes, without hemorrhage (principal); N39.0 Urinary tract infection, site not specified; R51 Headache
CPT/HCPCS: 76817; 80053; 81003; 81025; 82803; 83735; 84100; 84702; 85025; 85610; 85730; 87040; 87086; 87804; 93005; 99284; J7030